=== PATIENT | female | born 1970 | race Caucasian/White ===

== ENCOUNTER → 2017-05-06 | Outpatient (CLI) | payer OTHER ==
[~2017-05-06] MED LIST: CEFT500T PO; DIPH50TA PO; EPIP0.3I IM; OXYC-360 PO; PRED50 PO; PREN0.01 PO; RANI150 PO
[2017-05-06 14:18] LABS: HEMATOCRIT 41.9 % (35.0-46.0); MEAN CELL VOLUME 94.7 FL (80.0-100.0); MEAN CORPUSCULAR HEMOGLOBIN 32.3 PG (27.0-34.0); MEAN CORPUSCULAR HGB CONC 34.1 % (32.0-36.0); PLATELET COUNT 309 TH/MM3 (150-450); RED BLOOD COUNT 4.43 MIL/MM3 (4.00-5.30); RED CELL DISTRIBUTION WIDTH 13.1 % (11.6-17.2); REVIEW FLAG FINAL; WHITE BLOOD COUNT 7.9 TH/MM3 (4.0-11.0)
[2017-05-06 14:57] LABS: FOLLICLE STIMULATING HORMONE 61.9 mIU/mL; FREE T4 0.85 NG/DL (0.76-1.46)
== END ==
LOC: CLAB 13:59
PROVIDERS: ATTEND Obstetrics & Gynecology
DX: N95.1 Menopausal and female climacteric states (principal); N94.4 Primary dysmenorrhea
CPT/HCPCS: 36415; 83001; 84439; 84443; 85027